=== PATIENT | male | born 1995 | race Caucasian/White ===

== ENCOUNTER 2021-03-20 14:48 | Emergency (ER) | payer OTHER, MEDICAID ==
[2021-03-20] MEDS: Acetaminophen/oxyCODONE 325-5 MG Tab PO ONE (15:37)
[2021-03-20] MEDS: Acetaminophen/oxyCODONE 325-5 MG Tab ONE (15:38)
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
[2021-03-20] MEDS: Acetaminophen/oxyCODONE 325-5 MG Tab PO STA (16:06)
[2021-03-20] MEDS: Diphtheria,Pertussis(Acell),Tetanus Vaccine 0.5 ML Syringe IM ONE (16:07)
[2021-03-20] MEDS: Bacitracin Oint 1 GM U/D Packet TOP ONE (17:30)
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
== END 2021-03-20 17:41 | disposition home or self-care (01) ==
LOC: JP.ED 14:48
DX: S61.412A Laceration without foreign body of left hand, initial encounter (principal); Z23 Encounter for immunization; V86.39XA Unspecified occupant of other special all-terrain or other off-road motor vehicle injured in traffic accident, initial encounter
CPT/HCPCS: 12002; 73130; 90471; 90715; 99283; A9270